=== PATIENT | male | born 1955 | race African-American/Black ===

== ENCOUNTER 2018-12-01 21:34 | Emergency (ER) | payer MEDICARE, MEDICAID ==
[~2018-12-01] VITALS: Ht 182.9 cm; Wt 95.3 kg
[2018-12-01 21:39] VITALS: BP 134/78
[2018-12-01 22:24] LABS: Basophils # (auto) 0.1 uL; Basophils % (auto) 1.1 % (0.0-2.0); Eosinophils # (auto) 0.2 uL; Eosinophils % (auto) 2.5 % (0.0-7.0); Hematocrit 51.1 % (41.0-53.0); Hemoglobin 17.2 g/dL (13.5-17.5); Lymphocytes # (auto) 3.2 uL; Mean Corpuscular Hemoglobin 30.1 pg (28.0-32.0); Mean Corpuscular Hgb Conc. 33.7 g/dL (32.0-36.0); Mean Corpuscular Volume 89.5 fL (80.0-100.0); Monocytes # (auto) 0.7 uL; Monocytes % (auto) 9.6 % (0.0-12.0); Neutrophils # (auto) 3.4 uL; Neutrophils % (auto) 44.8 % (37.0-80.0); Platelet Count (auto) 221 10^3/uL (140-450); Red Blood Cells 5.71 10^6/uL (4.5-5.90); Red Cell Distribution Width 13.1 % (11.8-14.3); White Blood Cell 7.5 10^3/uL (4.4-10.8)
[2018-12-01 22:43] LABS: Anion Gap 8 (5-15); Calcium 9.4 mg/dL (8.5-10.1); Carbon Dioxide 29 mmol/L (21-32); Chloride 108 mmol/L (98-107); Glucose 101 mg/dL (74-106); Sodium 145 mmol/L (136-145)
[2018-12-01 22:45] LABS: Alanine Aminotransferase 37 U/L (16-61); Aspartate Aminotransferase 16 U/L (15-37); BUN/Creatinine Ratio 10.3; Blood Urea Nitrogen 15 mg/dL (7-18); GFR African American 63 mL/min; GFR Non-African American 52 mL/min
[2018-12-01 22:50] LABS: Alkaline Phosphatase 97 U/L (45-117); Bilirubin, Total 0.7 mg/dL (0.2-1.0); Total Protein 7.5 g/dL (6.4-8.2)
== END 2018-12-01 21:56 | disposition left against medical advice (07) ==
LOC: ER 21:38
DX: R07.89 Other chest pain (principal); Z53.21 Procedure and treatment not carried out due to patient leaving prior to being seen by health care provider
CPT/HCPCS: 36415; 80053; 84484; 85025; 93005

== ENCOUNTER 2019-02-14 15:46 | Emergency (ER) | payer MEDICARE, OTHER ==
[~2019-02-14] VITALS: Ht 182.9 cm; Wt 97.5 kg
[2019-02-14 16:13] VITALS: BP 113/77
[2019-02-14 16:42] LABS: Basophils # (auto) 0 uL; Basophils % (auto) 0.5 % (0.0-2.0); Eosinophils # (auto) 0.2 uL; Eosinophils % (auto) 2.9 % (0.0-7.0); Hematocrit 53.5 % (41.0-53.0); Hemoglobin 18.2 g/dL (13.5-17.5); Lymphocytes # (auto) 3.1 uL; Lymphocytes % (auto) 46.7 % (10.0-50.0); Mean Corpuscular Hemoglobin 30.2 pg (28.0-32.0); Mean Corpuscular Volume 88.9 fL (80.0-100.0); Monocytes # (auto) 0.5 uL; Monocytes % (auto) 7.7 % (0.0-12.0); Neutrophils # (auto) 2.8 uL; Neutrophils % (auto) 42.2 % (37.0-80.0); Nucleated Red Blood Cells % 0.1 %; Platelet Count (auto) 205 10^3/uL (140-450); Red Blood Cells 6.02 10^6/uL (4.5-5.90); Red Cell Distribution Width 13.7 % (11.8-14.3); White Blood Cell 6.7 10^3/uL (4.4-10.8)
[2019-02-14 16:59] LABS: INR < 0.93 (0.9-1.15)
[2019-02-14 17:00] LABS: Albumin 4.3 g/dL (3.4-5.0); Calcium 9.5 mg/dL (8.5-10.1); Carbon Dioxide 29 mmol/L (21-32)
[2019-02-14 17:03] LABS: Alanine Aminotransferase 48 U/L (16-61); Aspartate Aminotransferase 26 U/L (15-37); BUN/Creatinine Ratio 8.4; Bilirubin, Total 0.5 mg/dL (0.2-1.0); Blood Urea Nitrogen 13 mg/dL (7-18); GFR African American 59 mL/min; GFR Non-African American 49 mL/min; Glucose 146 mg/dL (74-106); Total Protein 8.4 g/dL (6.4-8.2)
[2019-02-14 17:05] LABS: Alkaline Phosphatase 113 U/L (45-117); Anion Gap 5 (5-15); Chloride 107 mmol/L (98-107); Potassium 4.1 mmol/L (3.5-5.1); Sodium 141 mmol/L (136-145)
== END 2019-02-14 20:07 | disposition home or self-care (01) ==
LOC: ER 15:46
DX: R42 Dizziness and giddiness (principal); I10 Essential (primary) hypertension; F12.10 Cannabis abuse, uncomplicated; F17.290 Nicotine dependence, other tobacco product, uncomplicated
CPT/HCPCS: 36415; 80053; 83880; 84484; 85025; 85610; 85730; 93005

== ENCOUNTER 2019-09-12 03:48 | Inpatient (IN) | payer MEDICARE, OTHER ==
[~2019-09-12] VITALS: Ht 182.9 cm; Wt 100.4 kg
[2019-09-12 04:14] LABS: Basophils # (auto) 0 10 ^3/uL (0-0.2); Basophils % (auto) 0.4 % (0.0-2.0); Eosinophils # (auto) 0.1 10 ^3/uL (0-0.8); Eosinophils % (auto) 1.3 % (0.0-7.0); Hematocrit 45.7 % (41.0-53.0); Hemoglobin 15.4 g/dL (13.5-17.5); Lymphocytes # (auto) 3.7 10 ^3/uL (0.4-5.4); Lymphocytes % (auto) 36.7 % (10.0-50.0); Mean Corpuscular Hemoglobin 29.7 pg (28.0-32.0); Mean Corpuscular Hgb Conc. 33.6 g/dL (32.0-36.0); Mean Corpuscular Volume 88.5 fL (80.0-100.0); Monocytes # (auto) 0.8 10 ^3/uL (0-1.3); Monocytes % (auto) 8.2 % (0.0-12.0); Neutrophils # (auto) 5.4 10 ^3/uL (1.6-8.6); Neutrophils % (auto) 53.4 % (37.0-80.0); Nucleated Red Blood Cells % 0.1 %; Platelet Count (auto) 244 10^3/uL (140-450); Red Blood Cells 5.17 10^6/uL (4.5-5.90); Red Cell Distribution Width 12.4 % (11.8-14.3); White Blood Cell 10.1 10^3/uL (4.4-10.8)
[2019-09-12] MEDS ORDERED: SODIUM CHLORIDE 0.9% 1,000 ML IV ONE (04:15)
[2019-09-12] MEDS ORDERED: InsuLIN REG 1unit/0.01ml Soln (100units/ml) IV ONE ×2 (04:15→05:45)
[2019-09-12 04:29] LABS: INR 0.98 (0.9-1.15); Partial Thromboplastin Time 22.2 sec (23.64-32.05)
[2019-09-12 04:36] LABS: Albumin 4.1 g/dL (3.4-5.0); Anion Gap 10 (5-15); Blood Urea Nitrogen 10 mg/dL (7-18); Calcium 9.2 mg/dL (8.5-10.1); Carbon Dioxide 24 mmol/L (21-32); Chloride 96 mmol/L (98-107); Magnesium 2.1 mg/dL (1.6-2.6); Potassium 3.3 mmol/L (3.5-5.1); Sodium 130 mmol/L (136-145)
[2019-09-12 04:45] LABS: Alanine Aminotransferase 62 U/L (16-61); Alkaline Phosphatase 146 U/L (45-117); Aspartate Aminotransferase 30 U/L (15-37); BUN/Creatinine Ratio 6.6; Bilirubin, Total 0.8 mg/dL (0.2-1.0); GFR African American 61 mL/min; GFR Non-African American 50 mL/min; Total Protein 7.9 g/dL (6.4-8.2)
[2019-09-12 04:51] LABS: Urine Bacteria FEW /hpf (None Seen); Urine Blood Negative /uL (Negative); Urine Specific Gravity 1.028 (1.001-1.035); Urine WBC 2 /hpf (0 - 3)
[2019-09-12 04:54] LABS: Glucose 563 mg/dL (74-106)
[2019-09-12 05:05] LABS: Amylase 56 U/L (25-115); Lipase 240 U/L (73-393)
[2019-09-12 05:06] LABS: Alcohol, Urine < 3.0 mg/dL (0-5); Amphetamine Screen, Urine NEGATIVE (NEGATIVE); Barbiturate Scree,Urine NEGATIVE (NEGATIVE); Benzodiazephine Screen, Urine NEGATIVE (NEGATIVE); Cannabinoid Screen, Urine NEGATIVE (NEGATIVE); Cocaine Screen, Urine NEGATIVE (NEGATIVE); Opiate Scree,Urine NEGATIVE (NEGATIVE); Phencyclidine Screen, Urine NEGATIVE (NEGATIVE)
[2019-09-12] MEDS ORDERED: InsuLIN REG 1unit/0.01ml Soln (100units/ml) SC ONE (05:45)
[2019-09-12] MEDS ORDERED: AMLO5TAB15 PO (06:06)
[2019-09-12] MEDS ORDERED: ACETAMINOPHEN 325 MG TAB PO PRN (06:45)
[2019-09-12] MEDS ORDERED: POTASSIUM CHL 20 Meq TABLET PO ONE (06:45)
[2019-09-12] MEDS ORDERED: TEMAZEPAM 15 MG CAP PO PRN (06:45)
[2019-09-12] MEDS ORDERED: ONDANSETRON HCL 4 MG/2 ML VIAL IV PRN (06:45)
[2019-09-12] MEDS ORDERED: MORPHINE SULF INJ 2 MG/ML SYRINGE 1ML IV PRN (06:45)
[2019-09-12] MEDS ORDERED: NITROGLYCERIN 0.4 MG SL TAB SL PRN (06:45)
[2019-09-12] MEDS ORDERED: DEXTROSE (50%) 50ML SYRG IV PRN (06:45)
[2019-09-12] MEDS: SODIUM CHLORIDE 0.9% 1,000 ML IV SCH ×2 (07:23→19:34)
--- NOTE | 2019-09-12 08:10 | NUR ---
RECEIVED REPORT REPORT RECEIVED FROM MAGGI PHILLIPS FROM THE ED FOR NEW ADMISSION. C/C CHEST PAIN LEFT SUB-STERNAL, PAIN 2/10. WILL CONTINUE TO MONITOR.
[2019-09-12 08:49] LABS: Cholesterol 122 mg/dL (< 200); HDL Cholesterol 28 mg/dL (40-59); LDL Cholesterol 73 mg/dL (< 100); Triglycerides 136 mg/dL (< 150)
[2019-09-12] MEDS ORDERED: ADENOSINE 84 MG in GIVE UN-DILUTED 0 ML IV STA (08:55)
--- NOTE | 2019-09-12 09:02 | NUR ---
Telemetry admit from CRISTIAN LEVI admitted to Telemetry unit after SBAR received. Patient oriented to STEPHANIE SPARKS RN primary RN, [facility], 250 room, A bed, and unit policies regarding patient care and visiting hours. Patient now on continuous telemetry monitoring, tele box #[id number] and telemetry reading on arrival to unit is . Patient weighed by bedscale and encouraged to call if they need something. All questions and concerns addressed, patient verbalized understanding. Note:
[2019-09-12 09:10] VITALS: BP 137/90
[2019-09-12] MEDS ORDERED: LOSA100T33 PO (09:59)
[2019-09-12 10:02] VITALS: BP 128/85
[2019-09-12] MEDS: FAMOTIDINE 20 MG TAB PO SCH ×2 (11:06→22:05)
[2019-09-12] MEDS: ASPirin 81 mg TAB PO SCH (11:07)
[2019-09-12] MEDS: LOSARTAN POTASSIUM 50 MG TAB PO SCH (11:08)
[2019-09-12] MEDS: amLODIPine BESYLATE 5 MG TAB PO SCH ×2 (11:09→22:04)
[2019-09-12] MEDS: ACCU-CHEK COMFORT CURVE STRIP VI SCH ×2 (12:14→18:47)
[2019-09-12] MEDS: InsuLIN REG 1unit/0.01ml Soln (100units/ml) SC SCH ×2 (12:33→18:50)
[2019-09-12 13:00] VITALS: BP 123/79
--- NOTE | 2019-09-12 15:38 | NUR ---
emergency medical services coordinator consult regarding Advance Directives. Pt is alert and oriented times 3. Pt states he lives with his fiance. He is very independent . He is able to take care of his needs and does not use any equipment. He will return home after D/C. Pt was provided with information on Advance Directives and Durable Power of Server Cashier Form. Pt verbalized understanding and accepted the information. Will contact Social Service for any further concerns or issues. Addendum: 09/12/19 at 1545 by DEBRA CUELLAR SS Amended: Links added.
[2019-09-12 17:00] VITALS: BP 139/87
--- NOTE | 2019-09-12 17:49 | NUR ---
CHANGE DIET ORDER PER BREAST SPLITTER TIM SANTOS CHANGED DIET FROM NPO TO CARDIAC 2GM NA DIET/ WITH CARB RESTRICTIONS/ STANDARD 60.
[2019-09-12 20:15] VITALS: BP 133/78
[2019-09-12 22:00] VITALS: BP 133/78
[2019-09-12] MEDS ORDERED: ATORVASTATIN 20 MG TAB PO SCH (22:00)
[2019-09-13] MEDS: InsuLIN REG 1unit/0.01ml Soln (100units/ml) SC SCH ×2 (00:41→06:23)
[2019-09-13] MEDS: ACCU-CHEK COMFORT CURVE STRIP VI SCH ×2 (00:42→06:23)
[2019-09-13 05:00] VITALS: BP 132/77
[2019-09-13] MEDS: SODIUM CHLORIDE 0.9% 1,000 ML IV SCH (06:24)
--- NOTE | 2019-09-13 06:57 | NUR ---
CLOSING NOTE- NOC SHIFT PATIENT RESTING COMFORTABLE IN BED. NO S/SX OF DISTRESS, SOB OR PAIN DIABETIC EDUCATION PROVIDED DURING SHIFT; PATIENT VERBALIZED UNDERSTANDING AND WILLINGNESS TO ABIDE TO NEW DIET AND EXERCISE LIFE STYLE.
[2019-09-13] MEDS ORDERED: SODIUM CHLORIDE 0.9% 1,000 ML IV SCH (07:00)
--- NOTE | 2019-09-13 07:00 | NUR ---
OPENING NOTE RECIEVED AM REPORT FROM NOC RN JUANITO, PATIENT WAS WITHOUT DISTRESS, CP, AND OR SOB. WILL CONTINUE TO MONITOR.
[2019-09-13 07:12] LABS: Basophils # (auto) 0 10 ^3/uL (0-0.2); Basophils % (auto) 0.5 % (0.0-2.0); Eosinophils # (auto) 0.1 10 ^3/uL (0-0.8); Hematocrit 48.8 % (41.0-53.0); Hemoglobin 16.6 g/dL (13.5-17.5); Lymphocytes # (auto) 2.8 10 ^3/uL (0.4-5.4); Lymphocytes % (auto) 38.5 % (10.0-50.0); Mean Corpuscular Hemoglobin 29.9 pg (28.0-32.0); Mean Corpuscular Volume 87.9 fL (80.0-100.0); Monocytes # (auto) 0.4 10 ^3/uL (0-1.3); Monocytes % (auto) 5.5 % (0.0-12.0); Neutrophils # (auto) 3.8 10 ^3/uL (1.6-8.6); Neutrophils % (auto) 53.5 % (37.0-80.0); Nucleated Red Blood Cells % 0.3 %; Platelet Count (auto) 280 10^3/uL (140-450); Red Blood Cells 5.54 10^6/uL (4.5-5.90); Red Cell Distribution Width 12.7 % (11.8-14.3); White Blood Cell 7.2 10^3/uL (4.4-10.8)
--- NOTE | 2019-09-13 07:15 | NUR ---
PATIENT DECLINES PROCEDURE PATIENT RESPECTFULLY DECLINED LEFT HEART CATHETERIZATION ADVISED BY DR. SMITH.
[2019-09-13 07:24] LABS: BUN/Creatinine Ratio 6.2; Calcium 9.3 mg/dL (8.5-10.1); Potassium 3.5 mmol/L (3.5-5.1)
--- NOTE | 2019-09-13 08:00 | NUR ---
COMMUNICATION MIRROR INSPECTOR CALLED DR. SMITH TO STATE PATIENT DECISION DECLINE OF LEFT HEART CATH.
--- NOTE | 2019-09-13 08:11 | NUR ---
COMMUNICATION PROVIDER DR. SMITH RETURNED CALL, STATED PATIENT WANTING TO DECLINE LEFT HEART CATH. DR. SMITH SAID HE WOULD CANCEL TO CANCEL THE PROCEDURE, AND CLEAR HIM FROM HIS STANDPOINT.
--- NOTE | 2019-09-13 08:40 | NUR ---
PATIENT COMMUNICATION PATIENT DEMANDED BLOOD PRESSURE MEDICATIONS TO BE ADMINISTERED IMMEDIATELY. EDUCATED PATIENT THAT THE EARLIEST TO PULL MEDICATIONS IS AT 0900. PATIENT SAID HE WOULD HAVE HIS FIANCE/GF BRING HIS BLOOD PRESSURE PILLS. I ASKED THAT THE PATIENT WOULD GIVE ME UNTIL 0900 TO ADMIN HIS SCHEDULE BP MEDICATIONS. PATIENT AGREED TO WAIT UNTIL 0900. PATIENT REFUSED THE OPTION OF ASKING THE HOSPITAL LIST FOR RX FOR SBP OVER 150. PATIENTS BLOOD PRESSURE 151/90.
--- NOTE | 2019-09-13 09:00 | NUR ---
MEDICATION BROUGHT PATIENTS 1000 MEDICATIONS TO ROOM AT 0900. PATIENT WAS AGITATED AND COMBATIVE IN TONE. PATIENT THEN REQUESTED A HANDWRITTEN MEDICATION LIST OF MEDICATIONS THAT I WAS TO GIVE HIM AT 0900. LEFT ROOM WITH MEDICATIONS IN HAND AND RETURNED WITH WRITTEN LIST. PATIENT THEN DEMANDED THAT HIS BLOOD PRESSURE BE RETAKEN. AND THAT HE WOULD WAIT UNTIL THE BLOOD PRESSURE IS RETAKEN. I WALK OUT OF THE ROOM TO FIND VS MACHINE. DR. UNDERWOOD ASKED ABOUT PLAN OF CARE OF PATIENT. SEE NEXT NOTE
--- NOTE | 2019-09-13 09:20 | NUR ---
DR. UNDERWOOD AT BEDSIDE PATIENT REFUSED LHC. DR. UNDERWOOD EDUCATED PATIENT ON LHC REFUSAL, MEDICATIONS FOR DM, STORE CLERK CHECKER FOR DM, NEED TO FOLLOW UP WITH UROLOGY. EUDCATED PATIENT ON DISEASE PROCESS
[2019-09-13] MEDS: ASPirin 81 mg TAB PO SCH (09:29)
[2019-09-13] MEDS: LOSARTAN POTASSIUM 50 MG TAB PO SCH (09:30)
[2019-09-13] MEDS: FAMOTIDINE 20 MG TAB PO SCH (09:30)
[2019-09-13] MEDS: amLODIPine BESYLATE 5 MG TAB PO SCH (09:30)
--- NOTE | 2019-09-13 09:50 | NUR ---
BLOOD PRESSURE 144/82 HR 103
--- NOTE | 2019-09-13 10:00 | NUR ---
PATIENT LEFT UNIT WITH TELEY ON TO GET BP MEDICATIONS FROM GF IN THE MAIN LOBBY
--- NOTE | 2019-09-13 10:09 | NUR ---
PATIENT RETURNED TO UNIT
== END 2019-09-13 11:30 | disposition home or self-care (01) | DRG 303 ==
LOC: EDBD 03:48 → ER 03:51 → TELE 03:52 → TELE-EAST 08:20
PROVIDERS: ADMIT Nurse Practitioner; ATTEND Family Medicine
DX: I25.110 Atherosclerotic heart disease of native coronary artery with unstable angina pectoris (principal); E11.9 Type 2 diabetes mellitus without complications; E86.0 Dehydration; E87.6 Hypokalemia; E27.8 Other specified disorders of adrenal gland; F17.210 Nicotine dependence, cigarettes, uncomplicated; I10 Essential (primary) hypertension; K76.0 Fatty (change of) liver, not elsewhere classified; N32.0 Bladder-neck obstruction; N40.0 Benign prostatic hyperplasia without lower urinary tract symptoms; E66.9 Obesity, unspecified; Z79.899 Other long term (current) drug therapy; Z71.6 Tobacco abuse counseling; Z83.3 Family history of diabetes mellitus; Z68.30 Body mass index [BMI] 30.0-30.9, adult
CPT/HCPCS: 36415; 36600; 71045; 74176; 76775; 78452; 80048; 80053; 80061; 80307; 80320; 81001; 82010; 82150; 82805; 82962; 83036; 83690; 83735; 83880; 84443; 84484; 85025; 85379; 85610; 85730; 93005; 93017; 93306; 96361; 96374; 96376; G0378; J0153; J1815